=== PATIENT | male | born 1965 | race Caucasian/White ===

== ENCOUNTER 2018-07-20 02:46 | Outpatient (CLI) | payer OTHER, SELFPAY ==
[2018-07-20 11:12] LABS: ALT 17 U/L (12-78); AST 13 U/L (15-37); Alkaline Phosphatase 47 U/L (46-116); Anion Gap 4.8 mmol/L (3-11); BUN 8 mg/dL (7-18); Bilirubin, Total 0.5 mg/dL (0.2-1.0); CO2 31.2 mmol/L (21.0-32.0); CREATININE 0.81 mg/dL (0.70-1.30); Chloride 101 mmol/L (98-107); Cholesterol 223 mg/dL (50-200); Glucose 93 mg/dL (70-100); HDL Cholesterol 48 mg/dL (40-60); LDL CHOLESTEROL 127 mg/dL (<100); Potassium 4.4 mmol/L (3.5-5.1); Sodium 137 mmol/L (136-145); Triglyceride 252 mg/dL (30-150)
== END 2018-07-20 03:06 ==
PROVIDERS: PCP Family Medicine; Visit Provider Family Medicine
DX: F10.21 Alcohol dependence, in remission (principal); E78.5 Hyperlipidemia, unspecified
CPT/HCPCS: 36415; 80053; 80061; 83721

== ENCOUNTER 2018-11-21 01:18 | Outpatient (CLI) | payer OTHER, SELFPAY ==
--- NOTE | 2018-11-21 15:17 | DI.RAD_ITS ---
SYMPTOMS/DIAGNOSIS: PRESSURE COUGH, UPPER CHEST, R05, H/O NICOTINE DEPENDENCE, F17.200, QUIT SMOKING IN JUNE 2018 PA AND LATERAL CHEST: The heart is normal in size. The lungs are clear. The mediastinal structures and pleura appear intact. CONCLUSION: Normal chest.
== END 2018-11-21 01:38 ==
PROVIDERS: PCP Family Medicine; Visit Provider Family Medicine
DX: F17.200 Nicotine dependence, unspecified, uncomplicated (principal); R05 Cough
CPT/HCPCS: 71046

== ENCOUNTER 2020-05-21 17:40 | Outpatient (CLI) | payer MEDICAID, SELFPAY ==
--- NOTE | 2020-05-21 08:45 | DI.RAD_ITS ---
EXAM: XR LUMBAR SPINE COMPLETE CLINICAL HISTORY: lower back pain and right proximal leg pain, lumbar radiculopathy rt,M54.16. TECHNIQUE: 2D digital imaging was performed. COMPARISON: No exams were available for comparison FINDINGS: There are 5 lumbar type vertebral bodies. There is a mild left convex curvature of the spine which m ay be positional. No spondylolysis or spondylolisthesis is present. There are endplate osteophytes throughout the lumbar spine. Mild disc space narrowing is seen at L2-3 and L5-S1. Facet arthropathy is present throughout. Atherosclerosis. IMPRESSION: Moderately severe degenerative changes in the lumbar spine. DATA REPOSITORY: RADIATION DOSE DELIVERED:
--- NOTE | 2020-05-21 08:45 | DI.RAD_ITS ---
EXAM: XR SACROILIAC JOINTS CLINICAL HISTORY: right lower back, right proximal leg pain,rt lumbar radiculopathy,M54.16. TECHNIQUE: 2D digital imaging was performed. COMPARISON: No exams were available for comparison FINDINGS: BONES: No acute fracture is present. No bony destructive lesion is seen. JOINTS: No dislocation present. No ankylosis or erosions are present. SOFT TISSUE: Normal. IMPRESSION: Unremarkable radiographs of the sacroiliac joints. DATA REPOSITORY: RADIATION DOSE DELIVERED:
== END 2020-05-21 18:00 ==
PROVIDERS: PCP Nurse Practitioner Family; Visit Provider Physician Assistant
DX: M54.16 Radiculopathy, lumbar region (principal); M47.816 Spondylosis without myelopathy or radiculopathy, lumbar region
CPT/HCPCS: 72110; 72202

== ENCOUNTER 2020-06-06 03:03 | Outpatient (CLI) | payer MEDICAID, SELFPAY ==
--- NOTE | 2020-06-06 07:15 | DI.MRI_ITS ---
EXAM: MR LUMBAR SPINE WO CLINICAL HISTORY: Pre-surgical consult,RT LUMBAR RADICULOPATHY,M54.16. TECHNIQUE: Multiplanar multisequence MRI of the Lumbar spine was performed. COMPARISON: No exams were available for comparison FINDINGS: Bones: The last intervertebral disc space is designated the L5/S1 level for the numbering purpose of this examination. The vertebral body heights are well maintained. Alignment is satisfactory. There are degenerative endplate signal changes throughout the lumbar spine most marked at L2-3 and L5-S1. Cord: The conus tip ends at the L1 level. It is of normal size and signal intensity. T12-L1: No disc herniations or bulges are present. No central spinal canal or neural foraminal stenos is. L1-2: No disc herniations or bulges are present. No central spinal canal or neural foraminal stenosi s. L2-3: No disc herniations or bulges are present. Mild degenerative changes of the facets are present. No significant central spinal canal stenosis is seen.No neural foraminal stenosis is present. L3-4: There is a mild diffuse disc bulge. There is mild narrowing of the central spinal canal. Dege nerative changes of the facets are seen. Moderate bilateral neural foraminal stenosis is present. L4-5: There is a diffuse disc bulge. There are hypertrophic changes of the facets and ligamentum fla vum. There is marked central spinal canal stenosis. Moderately severe right and moderate left neura l foraminal stenosis is present. L5-S1: There is a diffuse disc bulge. Degenerative changes of the facets are seen. Mild narrowing o f the central spinal canal is present. Moderate right and moderately severe left neural foraminal st enosis is present. Soft tissues: The visualized SI joints and sacrum are well maintained. The paraspinal soft tissues ar e unremarkable. IMPRESSION: Moderately severe degenerative changes are seen throughout the lumbar spine. The findings are most m arked at the L4-5 disc level where there is marked central spinal canal stenosis and moderately sever e right and moderate left neural foraminal stenosis. Please see the above discussion for complete de tails. DATA REPOSITORY:
== END 2020-06-06 03:23 ==
PROVIDERS: PCP Nurse Practitioner Family; Visit Provider Nurse Practitioner Family
DX: M47.816 Spondylosis without myelopathy or radiculopathy, lumbar region (principal); M48.061 Spinal stenosis, lumbar region without neurogenic claudication
CPT/HCPCS: 72148

== ENCOUNTER 2020-08-22 01:47 | Outpatient (CLI) | payer MEDICAID, SELFPAY ==
[2020-08-23 16:18] LABS: COVID-19 RT-PCR UVMMC Result Negative (Negative)
== END 2020-08-22 01:48 | disposition home or self-care (01) ==
LOC: LBO 01:47
PROVIDERS: PCP Nurse Practitioner Family; Visit Provider Nurse Practitioner Family
DX: Z20.822 Contact with and (suspected) exposure to COVID-19 (principal)
CPT/HCPCS: U0003

== ENCOUNTER 2020-08-28 02:50 | Outpatient (CLI) | payer MEDICAID, SELFPAY ==
[2020-08-29 10:08] LABS: COVID-19 RT-PCR UVMMC Result Negative (Negative)
== END 2020-08-28 02:51 | disposition home or self-care (01) ==
LOC: LBO 02:50
PROVIDERS: PCP Nurse Practitioner Family; Visit Provider Nurse Practitioner Family
DX: Z20.822 Contact with and (suspected) exposure to COVID-19 (principal)
CPT/HCPCS: U0003

== ENCOUNTER 2021-06-27 15:47 | Outpatient (CLI) | payer MEDICAID, SELFPAY ==
--- NOTE | 2021-06-27 10:34 | DI.RAD_ITS ---
Exam(s) XR WRIST RT COMPLETE EXAM: XR WRIST RT COMPLETE CLINICAL HISTORY: Fall with injury to wrist, visible protrusion M25.531 PAIN RT WRIST. TECHNIQUE: 2D digital imaging was performed of the right wrist. Three views were obtained. PA, lat eral and oblique views were obtained. COMPARISON: No exams were available for comparison FINDINGS: BONES: No acute fracture is present. No bony destructive lesion is seen. JOINTS: The carpal bones are normally aligned. SOFT TISSUE: There is a 9 mm linear metallic appearing density in the anterior soft tissues at the le lorene of the base of the 5th metacarpal. IMPRESSION: 1. No acute fracture or dislocation. 2. Linear foreign body in the soft tissues of the anterior wrist. DATA REPOSITORY: RADIATION DOSE DELIVERED:
== END 2021-06-27 16:07 ==
PROVIDERS: PCP Nurse Practitioner Family; Visit Provider Nurse Practitioner Family
DX: M25.531 Pain in right wrist (principal); M79.5 Residual foreign body in soft tissue; W19.XXXA Unspecified fall, initial encounter
CPT/HCPCS: 73110

== ENCOUNTER 2021-07-08 03:55 | Outpatient (CLI) | payer MEDICAID, SELFPAY ==
[2021-07-08 09:15] LABS: ALT 26 U/L (16-63); Albumin 3.9 g/dL (3.4-5.0); Alkaline Phosphatase 48 U/L (46-116); Anion Gap 9.6 mmol/L (3-11); BUN 13 mg/dL (7-18); Bilirubin, Total 0.4 mg/dL (0.2-1.0); CO2 27.4 mmol/L (21.0-32.0); Calcium 8.8 mg/dL (8.5-10.1); Chloride 100 mmol/L (98-107); Cholesterol 295 mg/dL (<200); Glucose 114 mg/dL (74-106); HDL Cholesterol 32 mg/dL (40-60); Potassium 4.2 mmol/L (3.5-5.1); Sodium 137 mmol/L (136-145); Total Protein 6.9 g/dL (6.4-8.2); Triglyceride 927 mg/dL (<150)
[2021-07-08 09:20] LABS: Hemoglobin A1C 5.5 % (<5.7)
[2021-07-08 09:30] LABS: AST 17 U/L (15-37)
[2021-07-08 09:38] LABS: LDL CHOLESTEROL 108 mg/dL (<100)
[2021-07-08 17:26] LABS: PSA, Screening 3.6 ng/mL (0.0-3.5)
--- NOTE | 2021-07-28 12:18 | W.NUTRFU ---
Date of service: 07/28/21 Time of Service: 12:18 Nutrition Note NOTE: Spoke to Jose C on phone, declines coming in for nutrition appointment. Answered questions about nutrition, triglycerides and lipid metabolism. Time Spent in Nutritional Counseling and Treatment: 5
== END 2021-07-08 03:56 | disposition home or self-care (01) ==
LOC: LBO 03:56
PROVIDERS: PCP Nurse Practitioner Family; Visit Provider Nurse Practitioner Family
DX: E78.5 Hyperlipidemia, unspecified (principal); Z13.1 Encounter for screening for diabetes mellitus; R35.1 Nocturia; Z00.00 Encounter for general adult medical examination without abnormal findings; Z12.5 Encounter for screening for malignant neoplasm of prostate
CPT/HCPCS: 36415; 80053; 80061; 83721; 84153; 83036

== ENCOUNTER 2021-08-06 02:39 | Outpatient (CLI) | payer MEDICAID, SELFPAY ==
[2021-08-06 09:14] LABS: Calculated LDL 52 mg/dL (<100); Cholesterol 123 mg/dL (<200); HDL Cholesterol 38 mg/dL (40-60); Triglyceride 165 mg/dL (<150)
== END 2021-08-06 02:40 | disposition home or self-care (01) ==
LOC: LBO 02:39
PROVIDERS: PCP Nurse Practitioner Family; Visit Provider Nurse Practitioner Family
DX: E78.5 Hyperlipidemia, unspecified (principal)
CPT/HCPCS: 36415; 80061

== ENCOUNTER → 2021-11-06 02:20 | Outpatient (CLI) | payer MEDICAID, SELFPAY ==
--- NOTE | 2021-11-06 07:45 | DI.CTLCSR_ITS ---
Exam(s) CT CHEST LUNG CANCER SCREEN EXAM: CT CHEST LUNG CANCER SCREEN CLINICAL HISTORY: Screening for lung cancer, former smoker, Z87.891 TECHNIQUE: Imaging Protocol: Axial computed tomography images with coronal and sagittal reformatted images were created and reviewed. Low dose screening protocol. COMPARISON: No exams were available for comparison FINDINGS: Tracheobronchial tree: No bronchiectasis or mucus plugging.. Mediastinum and Nohelia: No dominant adenopathy or fluid collection. Pulmonary parenchyma: No consolidation or dominant measurable mass. Minimal emphysematous changes in upper lobes.. Lung Nodules: None. Pleura: No effusion. No pneumothorax. Heart: The heart is not dilated. Mild coronary artery calcifications are seen. Aorta: Thoracic aorta non-dilated. Upper abdomen: Unremarkable. Bones: Unremarkable for age. Soft Tissues: Unremarkable. IMPRESSION: No suspicious pulmonary nodules. Lung RADS Cat 1 - Negative: No nodules and definitely benign nodules Lung-RADS 1.0 CATEGORIES: Category 0 - Prior chest CT exam(s) being located for comparison. Category 1 - Annual screening in 12 months. No nodules or definitely benign nodules. Category 2 - Annual screening in 12 months. Benign appearance. Nodules with low likelihood of becomin g active cancer. Category 3 - 6-month follow-up. Probably benign. Short-term follow-up suggested. Nodules with low lik elihood of becoming active cancer. Category 4A - 3-month follow-up and CT/PET if >8 mm in size. Suspicious finding. Findings which requi re additional testing. Category 4B - Findings which require additional testing and tissue sampling. Category 4X - Category 3 or 4 nodules with additional features or imaging findings that increases the suspicion of malignancy. Modifier S- Potentially clinically significant findings (non lung cancer) RADIATION DOSE DELIVERED: 109.16mGy.cm Total DLP 2.21mGy CTDIvol DATA REPOSITORY: All CT scans at this facility are submitted to the National Radiology Data Registry (NRDR) Dose Index Registry (DIR) with the [employer] (A[employer]). RADIATION OPTIMIZATION: All CT scans at this facility use at least one of these dose optimization te chniques: automated exposure control; mA and/or kV adjustment per patient size (includes targeted exa ms where dose is matched to clinical indication); or iterative reconstruction.
== END ==
PROVIDERS: PCP Nurse Practitioner Family; Visit Provider Physician Assistant
DX: Z12.2 Encounter for screening for malignant neoplasm of respiratory organs (principal); Z87.891 Personal history of nicotine dependence
CPT/HCPCS: 71271

== ENCOUNTER 2021-11-28 01:11 | Outpatient (CLI) | payer MEDICAID, SELFPAY ==
[2021-11-28 12:00] LABS: Source Nasal/Nares
[2021-11-28 16:04] LABS: COVID-19 PCR Negative (Negative)
== END 2021-11-28 01:12 | disposition home or self-care (01) ==
LOC: LBO 01:11
PROVIDERS: PCP Nurse Practitioner Family; Visit Provider Surgery
DX: Z20.822 Contact with and (suspected) exposure to COVID-19 (principal); Z01.818 Encounter for other preprocedural examination
CPT/HCPCS: 87635

== ENCOUNTER 2021-12-01 06:17 | Day surgery (SDC) | payer MEDICAID, SELFPAY ==
--- NOTE | 2021-12-01 06:07 | W.ANESPRE ---
General Info Date of Service Date Performed: 12/01/21 Height: 6 ft 2 in Weight: 101.151 kg Body Mass Index (BMI): 28.6 Surgical Procedure: Operation Date: 12/01/21 07:35 Proposed Procedure Side Surgeon p Gastroscopy Anjana Prather MD Meds Allergies and Home Medications Allergies Allergy/AdvReac Type Severity Reaction Status Date / Time No Known Allergies Allergy Verified 12/01/21 06:27 Home Medication Medication Instructions Recorded atorvastatin 40 mg tablet 40 mg PO DAILY #90 tabs 07/09/21 omega-3 fatty acids-fish oil 300 1 cap PO DAILY 11/25/21 mg-500 mg capsule (Fish Oil) multivitamin 1 tab PO DAILY 11/28/21 Current Visit Medications: Current Medications Generic Name Dose Route Start Last Admin Trade Name Freq PRN Reason Stop Dose Admin Ringer's Solution 1,000 mls @ 80 mls/hr 12/01/21 06:00 IV 12/28/21 23:59 INFUSION JEFFERY IV Miscellaneous Supplies 1 each 12/01/21 06:00 Iv Access IV 12/28/21 23:59 DIRECTED JEFFERY Sodium Chloride 0 ml 12/01/21 06:00 Normal Saline Flush 10 Ml Syr IV 12/28/21 23:59 PRN PRN Sodium Chloride 0 ml 12/01/21 06:00 Normal Saline 10 Ml Vial IJ 12/28/21 23:59 DIRECTED PRN Sterile Water 0 ml 12/01/21 06:00 Water,Injection,Sterile 10 Ml Vial IJ 12/28/21 23:59 DIRECTED PRN PFSH Active Problems Active Problems: Problem Status Onset Code Smoker F17.200 GERD (gastroesophageal reflux disease) K21.9 Medical History Medical History COVID-19 06/02/20 Deformity, wrist acquired Dupuytren's contracture of left hand (03/31/17) Was surgically repaired. Dupuytren's contracture of right hand Ganglion cyst of volar aspect of right wrist Healthcare maintenance History of alcoholism quit 2004 Hx of acute alcoholic hepatitis quit 2004 Hyperlipidemia Leg pain, bilateral Lumbar radiculopathy, right Nocturia Other tear of medial meniscus, current injury, right knee, initial encounter (03/31/17) Perimeniscal cyst of right knee (03/31/17) Pes planus of both feet (07/25/15) Sexual function problem Surgical History Surgical History (Updated 12/01/21 @ 06:26 by Chirag Watkins) Hx of arthroscopic knee surgery Hx of tonsillectomy Repair of inguinal hernia (11/24/07) Status post inguinal hernia repair Tobacco Smoking/Tobacco Use Status: Former Tobacco Use Passive smoking exposure: Yes Second hand exposure: Yes Alcohol Alcohol Intake: current Alcohol intake frequency: 0-2 drinks per day Alcohol type: beer Substance Use Substance use: Occasionally Substance use type: marijuana Vital Signs and Lab Results Vital Signs Most Recent Vital Signs in EMR: Temp Pulse Resp BP Pulse Ox 36.6 C 63 16 158/95 H 99 12/01/21 06:28 12/01/21 06:28 12/01/21 06:28 12/01/21 06:28 12/01/21 06:28 Lab Results Blood Type / Crossmatch: No Data to Display Complete Blood Count: No Data to Display Complete Metabolic Panel: No Data to Display Liver Function Panel: No Data to Display Coagulation Panel: No Data to Display Cardiac Panel: No Data to Display Arterial Blood Gas: No Data to Display Venous Blood Gas: No Data to Display Pancreas Panel: No Data to Display Thyroid Panel: No Data to Display Infectious Disease: Coronavirus (COVID-19)(PCR) Negative (Negative) 11/28/21 11:10 Coronavirus 2019 Source Nasal/Nares 11/28/21 11:10 Blood Cultures: No Data to Display Toxicology Panel: No Data to Display Anesthesia Assessment and Plan Anesthesia History Personal History: No History of Anesthesia Complications Family History: No Family History of Anesthesia Complications Exercise Tolerance Exercise Tolerance: Metabolic Equivalents>4 Cardiac & Pulmonary Exam Cardiac Exam: Normal S1/S2 Heart Sounds Pulmonary Exam: Clear Bilateral Breath Sounds Implantable Cardiac Device Does patient have a Pacemaker or an ICD?: No Airway Exam Known Difficult Airway: No Mallampati Class: 2 Mouth Opening: Normal (> 3cm) Thyromental Distance: Greater than 3 cm Neck Range of Motion: Full ROM Neck Circumference: Normal Teeth Condition: Normal Dentition ASA Classification ASA Score: ASA 2 Emergency Case?: No NPO Status NPO Status: NPO Clears >2 hours, Solids >8 hours Anesthesia Plan Resuscitation Status: Full Code Anesthesia Technique: General Anesthesia Airway Planned: Natural Airway Monitors Used: Standard Monitors Preoperative Comments:: 56 yo male for EGD due to frequent throat clearing. SigPMHx: emphysema, former smoker. Previous Anes: LMA 5, esmolol.
--- NOTE | 2021-12-01 06:10 | W.PM.ENDDOP ---
Date of service: 12/01/21 Time of Service: 07:34 Endoscopy Report DATE OF PROCEDURE: 12/01/21 PRE-OP DIAGNOSIS: Clearing of throat POST-OP DIAGNOSIS: other (mild gastritis and mild esophagitis) PROCEDURE: EGD with biopsies SURGEON: Anjana Prather ANESTHESIA TYPE: General:No Airway ESTIMATED BLOOD LOSS: 3 PATHOLOGY: other (antrum bx, GE junction bx) COMPLICATIONS: None DISPOSITION: same day INDICATIONS: Mr. Wren is a pleasant 56-year-old gentleman with complaint of having to clear his throat constantly and feeling like he has cow webs? in the back of his throat.? He denies any symptoms of reflux or heartburn.? He has a prescription for omeprazole but has not tried that.? He is got some mild emphysema.? I do not think that the symptoms are due to reflux, but with his history of smoking I think it is reasonable to do an upper endoscopy and make sure that there is not anything going on.? I will also look at his oropharynx to make sure there are not any lesions.? I did discuss a colonoscopy with him but he is not interested at this time.? He wants to just find out what is going on with his throat.? The EGD procedure was discussed in detail as well as the risks and benefits.? Complications were reviewed and he wished to proceed.? Risks, benefits and complications have been reviewed. Complications include but are not limited to bleeding, pain, perforation, sore throat, aspiration, and adverse reaction to the medications.? Questions were entertained and answered to their satisfaction and they wished to proceed. No guarantees were given or implied. EGD under sedation FINDINGS: mild inflammation of the stomach and esophagus PROCEDURE DESCRIPTION: After informed consent was obtained the patient was take to the procedure room and placed in a supine position. Monitors were applied and a time out was done. The patients name, date of , procedure type, allergies to medications and metal in their body was reviewed. A bite block was placed and the patient was sedated. Once sedated and comfortable the gastroscope was advanced through the oropharynx which was grossly normal into the esophagus. The proximal and mid-esophagus were normal. In the distal esophagus there was mild inflammation noted. The scope was advanced into the stomach and through the pylorus into the 3rd portion of the duodenum. The duodenum was noted to be normal. The scope was retracted back into the stomach. There was mild inflammation noted in the antrum. Biopsies were done to rule out H. pylori. There were no ulcers. The scope was retroflexed. The cardia and fundus were noted to be normal. There was no hiatal hernia noted. The scope was retracted back into the esophagus and biopsies were done of the GE junction to rule out Florez's. The Z line was regular. The GE junction was at 35 cm. The scope was removed and the patient was woken up and taken back to [facility] in stable condition. Follow up: 2 week in the office. Start on Pepcid 40 mg daily
--- NOTE | 2021-12-01 06:11 | W.PM.DSUDISC ---
Discharge Plan Disposition Patient Disposition: HOME Condition: Good Discharge Details Reason For Visit: egd Attending Provider: Anjana Prather Primary Care Provider: Wolfgang Caceres Home Meds and New Rx's Prescriptions: New famotidine [Pepcid] 40 mg tablet 40 mg PO DAILY Qty: 30 3RF Continued Fish Oil 300-500 mg capsule 1 cap PO DAILY atorvastatin 40 mg tablet 40 mg PO DAILY Qty: 90 3RF multivitamin Tablet 1 tab PO DAILY Discharge Instructions Instructions: Gastritis (DC), Diet for Stomach Ulcers and Gastritis (ED), GERD (Gastroesophageal Reflux Disease) (DC) Additional Instructions: Findings: mild inflammation of the stomach and esophagus Follow up: 2 weeks in the office Please call if you develop: fevers >101.5 Nausea or Vomiting Abdominal pain that is not transient Rectal bleeding that is more then a tbsp A hard abdomen and inability to pass gas DAY SURGERY UNIT POST ENDOSCOPY INSTRUCTIONS Instructions for everyone who is given Anesthesia: For your safety, please do the following for the next 24 Hours: a. Do not drive or operate dangerous equipment b. Do not drink alcohol beverages or use any recreational drugs for the first 24 hours or while taking pain medications. The medications in your body may have a reaction that can be dangerous. c. Do not make any important decisions or sign any important papers 1. Generally there are no restrictions on your activity after a day or so has gone by, but you may feel a bit fatigued for a few days. 2. After you arrive home you may have a light meal and return to a normal diet as you can tolerate it without feeling sick to your stomach. 3. After surgery, you may feel pain or discomfort. This should be only transient, but if it persists please contact your doctor. 4. If there are any questions regarding the findings of your procedure, please feel free to contact your doctor. 6. If you are unable to contact your doctor with a problem, contact the hospital at [phone]. 7. Continue all your regular medications unless directed otherwise. I understand the above instructions and have no questions. Signature of Patient or Responsible Adult Escort Date/Time Name of Responsible Adult Escort Signature of Nurse Date/Time Referrals: Anjana Prather MD [ [facility] STAFF PHYSICIAN] - 12/26/21 11:30 am Activity:: Activity as Tolerated Diet:: low acid Discharge Orders Discharge Orders: Discharge Order (Routine); Ordered 12/01/21 Ordered By: Anjana Prather
[2021-12-01 06:28] VITALS: BP 158/95; PULSE 63; RESP 16; TEMP 36.6; O2SAT 99
[2021-12-01] MEDS: Lactated Ringers 1,000 ML 80 ML IV (06:53)
[2021-12-01 07:02] VITALS: BMI 28.6
--- NOTE | 2021-12-01 07:27 | STOM_PTH ---
PATIENT: Jose C Wren LOC: [facility] U#:[id number] AGE/SX: 56/M ROOM: RE12/01/[address]: Anjana Prather MD : [id number] BED: DIS: 12/01/2021 SPEC #: [id number] RECD: 12/01/21 12:52 STATUS: DWAYNE REQ #: [id number] KIRK: 12/01/21 07:[address]: Anjana Prather DEPT: Surgical Specimen RECD BY: Dinorah Franklin ENTERED: 12/01/21 12:53 SP TYPE: STOMACH OTHR DR: Wolfgang Caceres, OBSTETRICIAN AND GYNAECOLOGIST Tissues: 1 - STOMACH BIOPSY 2 - ESOPHAGUS BIOPSY Procedures: GROSS AND MICRO LEVEL 4 Comments: [id number]
[2021-12-01 07:34] VITALS: BP 140/93; PULSE 83; RESP 16; TEMP 36.6; O2SAT 98
--- NOTE | 2021-12-01 07:53 | W.ANESPOSTOP ---
Postoperative Evaluation Date, Time and Location Date Performed: 12/01/21 Time Performed: 07:46 Patient Location: Day Surgery Unit Vital Signs Most Recent Imported Vital Signs: Most Recent Vital Signs Temp Pulse Resp BP Pulse Ox 36.6 C 83 16 140/93 H 98 12/01/21 07:34 12/01/21 07:34 12/01/21 07:34 12/01/21 07:34 12/01/21 07:34 Pain Score Most Recent Pain Score: Most Recent Pain Score Pain Level 0 12/01/21 07:34 Assessment Mental Status: Awake (Alert & Oriented to Patient Baseline) Airway and Respiratory Function: Patent airway with normal (patient baseline) respiratory exam Cardiovascular Function: Hemodynamically Stable Hydration Status: Adequately Hydrated Nausea & Vomiting: No Nausea or Vomiting Pain: Pt. Denies Any Pain Peripheral Nerve Block: Patient did not receive a nerve block
[2021-12-01 08:02] VITALS: BP 141/97; PULSE 71; RESP 16; TEMP 36.7; O2SAT 94
== END 2021-12-01 08:20 | disposition home or self-care (01) ==
LOC: SUR 06:18
PROVIDERS: PCP Nurse Practitioner Family; Visit Provider Surgery
PROC: 0DJ68ZZ Inspection of Stomach, Via Natural or Artificial Opening Endoscopic (ICD-10-PCS; CPT 43235; principal; 2021-12-01 07:30)
DX: K20.90 Esophagitis, unspecified without bleeding (principal); K29.70 Gastritis, unspecified, without bleeding; J43.9 Emphysema, unspecified; K22.89 Other specified disease of esophagus; K31.89 Other diseases of stomach and duodenum
CPT/HCPCS: 43239; 88305; J2704

== ENCOUNTER 2022-06-26 01:30 | Outpatient (CLI) | payer MEDICAID, SELFPAY ==
[2022-06-26 12:33] LABS: Anion Gap 6.7 mmol/L (3-11); BUN 11 mg/dL (7-18); CO2 29.3 mmol/L (21.0-32.0); CREATININE 1.2 mg/dL (0.70-1.30); Calcium 9.5 mg/dL (8.5-10.1); Calculated LDL 101 mg/dL (<100); Chloride 100 mmol/L (98-107); Cholesterol 218 mg/dL (<200); Estimated GFR 70.98 (mL/min/1.73m2); Glucose 113 mg/dL (74-106); HDL Cholesterol 51 mg/dL (40-60); Potassium 4.8 mmol/L (3.5-5.1); Sodium 136 mmol/L (136-145); Triglyceride 332 mg/dL (<150)
== END 2022-06-26 01:31 | disposition home or self-care (01) ==
LOC: LOS 01:31
PROVIDERS: PCP Nurse Practitioner Family; Visit Provider Nurse Practitioner Family
DX: E78.5 Hyperlipidemia, unspecified (principal); Z79.1 Long term (current) use of non-steroidal anti-inflammatories (NSAID)
CPT/HCPCS: 36415; 80048; 80061

== ENCOUNTER 2022-10-08 03:07 | Outpatient (CLI) | payer MEDICAID, SELFPAY ==
[2022-10-08 12:26] LABS: ESR 2 mm/hr (0-20)
[2022-10-08 21:43] LABS: Rheumatoid Factor <8.6 IU/mL (<12.0)
== END 2022-10-08 03:08 | disposition home or self-care (01) ==
LOC: LOS 03:07
PROVIDERS: PCP Nurse Practitioner Family; Visit Provider Nurse Practitioner Family
DX: M25.541 Pain in joints of right hand; M25.542 Pain in joints of left hand; G89.29 Other chronic pain
CPT/HCPCS: 36415; 85652; 86431

== ENCOUNTER → 2023-03-25 00:54 | Outpatient (CLI) | payer MEDICAID, SELFPAY ==
--- NOTE | 2023-03-25 | DI.MRI_ITS ---
Exam(s) MR LUMBAR SPINE WO EXAM: MR LUMBAR SPINE WO CLINICAL HISTORY: RT THIGH PAIN M79.651 LATERAL HIP AND GROIN PAIN, RADICULOPATHY. TECHNIQUE: Multiplanar multisequence MRI of the Lumbar spine was performed. COMPARISON: MR MR LUMBAR SPINE WO from 06/06/2020 FINDINGS: Conus medullaris is at 1-2 level. There is no evidence of conus mass nor subjacent clumping of intra thecal nerve roots to suggest arachnoiditis. The distal thecal sac appears unremarkable.There is no evidence of Tarlov intrasacral cysts nor other significant findings within the sacral canal Bones:There are no fractures nor ominous osseous lesions in the lumbar vertebral bodies and visualize d sacrum. Modic type 2 sub endplate fatty marrow changes are again evident at L2-3 level. With respect to the individual levels... T12-L1: Unremarkable L1-2: Mild annular bulging which is not associated with significant disc herniation. Central canal d imensions are lower normal. No significant foraminal stenosis. Mild facet joint degenerative change s. L2-3: Moderate uniform disc space narrowing again noted with Modic type 2 sub endplate fatty marrow c hanges and anterior osteophytes again noted. . There is mild annular bulging at this level again no mychal without a distinct focal disc herniation and central canal dimensions remain lower normal. There is also no significant foraminal stenosis at this level. Mild facet degenerative changes again note d. L3-4: This level again exhibits mild asymmetric disc space narrowing on the right side. No prominent osteophytes associated with this. There is relatively symmetrical annular bulging at this level aga in noted, similar to the previous study and without evidence of a new disc herniation at this level. Central canal dimensions are lower normal. Mild annular bulging into the exiting neural foramina fl oor noted bilaterally but unchanged and not associated with significant foraminal stenosis. Mild deg enerative changes in both facet joints again noted. L4-5: This level again exhibits mild asymmetric narrowing of the right-side of the disc space and mar ginal right-sided osteophytes are again noted at this level. There is no new sub endplate marrow sig nal abnormality. There is severe central spinal canal stenosis at this level again noted. This is r elated to developmental short AP dimensions of the pedicles, the annular bulging, and advanced facet joint degenerative changes at this level. There is no foraminal stenosis on the left side at this le lorene. However, there is moderate right-sided foraminal stenosis again noted which is due to the asymm etric disc height loss on the right side of this level and this causes compression of the exiting rig ht nerve root between the overlying right L4 pedicle and the subjacent annular bulging. This finding is unchanged from the prior MRI scan of 2020. Severe degenerative changes in the facet joints at th is level again noted with further progression. L5-S1: This level exhibits relatively uniform moderate disc space narrowing. There is broad relative ly symmetrical annular bulging at this level and this extends into the floor both exiting neural fora noel. There is mild central canal stenosis at this level due to the broad and bulging and short AP d imensions of the pedicles. There are mild-moderate degenerative changes in both facet joints again n oted. There is significant left-sided foraminal stenosis at this level again noted with impingement of the exiting left nerve root between the overlying L5 left pedicle and the subjacent annular bulgin g. On the right side there is milder canal stenosis again noted, unchanged. Soft tissues: paraspinal soft tissues appear unremarkable. IMPRESSION: 1. Findings as described individually above but exhibiting minimal if any significant change when com pared to the prior MRI scan of May 2020. 2. Severe central spinal canal stenosis is again noted at L4-5 level which is due to developmental sh ort AP dimensions the pedicles, annular bulging, and advanced bilateral facet arthropathy changes at this level. There is mild ligamentum flavum hypertrophy also contributing to the stenosis at this le lorene. 3. There is significant foraminal stenosis on the right side at L4-5 level and on the left side at L5 -S1 level. Also similar to prior MRI scan of 2020. DATA REPOSITORY:
== END ==
PROVIDERS: PCP Nurse Practitioner Family; Visit Provider Nurse Practitioner
DX: M99.63 Osseous and subluxation stenosis of intervertebral foramina of lumbar region (principal); M47.816 Spondylosis without myelopathy or radiculopathy, lumbar region
CPT/HCPCS: 72148

== ENCOUNTER 2023-07-05 04:53 | Outpatient (CLI) | payer MEDICAID, SELFPAY ==
[2023-07-05 12:33] LABS: CREATININE 1.1 mg/dL (0.70-1.30); Calculated LDL 88 mg/dL (<100); Cholesterol 205 mg/dL (<200); HDL Cholesterol 51 mg/dL (40-60); Potassium 4.1 mmol/L (3.5-5.1); Triglyceride 332 mg/dL (<150)
== END 2023-07-05 04:54 | disposition home or self-care (01) ==
LOC: LOS 04:53
PROVIDERS: PCP Nurse Practitioner Family; Visit Provider Nurse Practitioner Family
DX: E78.5 Hyperlipidemia, unspecified (principal); I10 Essential (primary) hypertension
CPT/HCPCS: 36415; 80061; 82565; 84132